=== PATIENT | male | born 1955 | race Caucasian/White ===

== ENCOUNTER 2021-09-23 10:19 | Outpatient (CLI) | payer MEDICARE, OTHER, SELFPAY ==
--- NOTE | ~2021-09-23 | NM_ITS ---
EXAMINATION: NM bone scan whole body DATE: 09/23/2021 14:31 INDICATION: Malignant tumor of the prostate TECHNIQUE: 23.1 mCi Tc-99m HDP was administered intravenously. Delayed whole-body scintigrams were o btained. COMPARISON: CT abdomen and pelvis dated 09/23/2021 FINDINGS: Mild uptake at L4-L5 with severe bilateral lumbar facet osteoarthritis. Additional increased uptake p osteriorly at the lower cervical spine also likely related to facet osteoarthritis but without other imaging studies for correlation. Small focus of mild increased uptake at the posterior right ninth ri b without septal small focus of sclerosis along the anterior cortex. Symmetric mild likely degenerati ve uptake at the bilateral acromioclavicular and sternoclavicular joints. Nonspecific small focus of mild increased uptake in the right malar region. IMPRESSION: 1. Indeterminate small foci of mild increased uptake at the posterior right ninth rib and in the righ t malar region, the former with subtle tiny sclerotic focus in the latter without imaging correlate. Early osseous metastatic disease cannot be excluded. Reviewed, dictated and finalized at location [facility]. IMPRESSION: 1. Indeterminate small foci of mild increased uptake at the posterior right harrison th rib and in the right malar region, the former with subtle tiny sclerotic foc us in the latter without imaging correlate. Early osseous metastatic disease ca nnot be excluded.
--- NOTE | ~2021-09-23 | CT_ITS ---
EXAMINATION: CT abdomen pelvis w con DATE: 09/23/2021 11:02 INDICATION: Prostate cancer TECHNIQUE: Computed tomography (CT) of the abdomen and pelvis was performed with 100 CC Omnipaque 350 intravenous contrast. Automated exposure control and iterative reconstruction technique were employe d. Exam dose: 448.66 mGy-cm total exam DLP. COMPARISON: None FINDINGS: The lung bases are clear of infiltrate or consolidation. Normal heart size. No pericardial or pleural effusion. 4 mm right hepatic cyst. The liver, gallbladder, spleen, pancreas and bile and pancreatic ducts are o therwise unremarkable. 1.7 cm exophytic lower pole right renal cyst. Kidneys are otherwise unremarkable. No urinary tract ca lculus or hydroureteronephrosis. The urinary bladder is unremarkable. The prostate gland and seminal vesicles appear unremarkable. There is atherosclerotic calcification but normal caliber of the abdominal aorta. No intraperitoneal or retroperitoneal or pelvic mass lesion or adenopathy or ascites. No evidence of appendicitis. Minimal diverticulosis of the colon; no CT evidence of diverticulitis. No bowel obstruction, bowel wa ll thickening, pneumatosis or intraperitoneal free air. Degenerative change at the lumbar apophyseal joints with associated grade 1 anterolisthesis at L4-5. No suspicious osteolytic or osteoblastic lesions are noted. IMPRESSION: 4 mm hepatic cyst 1.7 cm right renal cyst Diverticulosis of colon; no evidence of diverticulitis Reviewed, dictated and finalized at [facility]. Reviewed, dictated and finalized at location A.
[2021-09-23 10:54] LABS: Estimated Glomerular Filt Rate > 60
== END 2021-09-23 10:20 | disposition home or self-care (01) ==
PROVIDERS: PCP Family Medicine; Visit Provider Urology
DX: C61 Malignant neoplasm of prostate (principal); M89.9 Disorder of bone, unspecified; K76.89 Other specified diseases of liver; N28.1 Cyst of kidney, acquired; K57.90 Diverticulosis of intestine, part unspecified, without perforation or abscess without bleeding
CPT/HCPCS: 74177; 78306; A9561; Q9967